=== PATIENT | male | born 1955 | race Two or more races ===

== ENCOUNTER → 2018-08-22 | Day surgery (SDC) | payer OTHER ==
[2018-08-11 10:10] LABS: BASOPHILS % 0.6 % (0.0-1.0); EOSINOPHILS # (AUTO) 0.1 (0.0-0.4); EOSINOPHILS % 1.1 % (0.0-6.0); HEMATOCRIT 42.5 % (38.2-49.6); HEMOGLOBIN 14.7 g/dL (14.0-18.0); LYMPHOCYTES # (AUTO) 2.6 (1.0-3.2); LYMPHOCYTES % 39.4 % (18.0-39.1); MEAN CORPUSCULAR HEMOGLOBIN 31.1 pg (28-32); MEAN CORPUSCULAR HGB CONC 34.6 g/dL (31-35); MONOCYTES # (AUTO) 0.4 (0.2-0.8); MONOCYTES % 5.8 % (4.4-11.3); NEUTROPHILS # (AUTO) 3.4 (2.1-6.9); PLATELET COUNT 210 x10e3/uL (140-360); RED BLOOD COUNT 4.72 x10e6/uL (4.3-5.7); RED CELL DISTRIBUTION WIDTH 13.3 % (11.7-14.4)
[~2018-08-22] MED LIST: ASPIR 8181 MG PO; HYOSCYAMINE SULFATE 0.5 MG/ML INJ ONE; MIDAZOLAM HCL 2 MG/2 ML VIAL ONE; PLAVIX75 MG PO; PROPOFOL IV EMULSION 10 MG/ML 50 ML VIAL ONE
[2018-08-22 10:00] VITALS: BP 149/83
== END | disposition home or self-care (01) ==
LOC: OR 05:34
PROVIDERS: ATTEND Internal Medicine Gastroenterology
DX: Z12.11 Encounter for screening for malignant neoplasm of colon (principal); D12.2 Benign neoplasm of ascending colon; K64.8 Other hemorrhoids; I25.10 Atherosclerotic heart disease of native coronary artery without angina pectoris; E11.9 Type 2 diabetes mellitus without complications; Z01.812 Encounter for preprocedural laboratory examination; Z79.02 Long term (current) use of antithrombotics/antiplatelets; Z79.82 Long term (current) use of aspirin; Z68.32 Body mass index [BMI] 32.0-32.9, adult; Z95.5 Presence of coronary angioplasty implant and graft
CPT/HCPCS: 36415 ×2; 45384; 45385; 82948; 85025; 93005; J1980; J2250; 45378

== ENCOUNTER 2024-05-07 06:20 | Emergency (ER) | payer MEDICARE ==
[~2024-05-07] VITALS: Ht 172.7 cm; Wt 83.5 kg
[~2024-05-07 06:20] MED LIST changes: -HYOSCYAMINE SULFATE 0.5 MG/ML INJ ONE; -MIDAZOLAM HCL 2 MG/2 ML VIAL ONE; -PROPOFOL IV EMULSION 10 MG/ML 50 ML VIAL ONE
[2024-05-07 06:27] VITALS: PULSE 79; RESP 18; TEMP 98.4; O2SAT 94
[2024-05-07] MEDS: MINERAL OIL 132 ML BTL PR ONE (07:08)
[2024-05-07] MEDS ORDERED: MAGNESIUM CITR296 ML PO (07:36)
== END 2024-05-07 08:24 | disposition home or self-care (01) ==
LOC: ER 06:33
DX: K59.00 Constipation, unspecified (principal); E11.9 Type 2 diabetes mellitus without complications
CPT/HCPCS: 99282